=== PATIENT | male | born 1990 | race Asian ===

== ENCOUNTER 2019-02-01 21:25 | Emergency (ER) | payer BC ==
[2019-02-01] MEDS ORDERED: SODIUM CHLORIDE 0.9% 1,000 ML IV STA (21:42)
[2019-02-01 22:04] VITALS: RESP 18
[2019-02-01] MEDS ORDERED: MAG HYDROX/AL HYDROX/SIMETH 30 ML, HYOSCYAMINE ELIXIR 10 ML, CIMETIDINE HCL 300 MG, LID... PO STA ×4 (22:08)
[2019-02-01] MEDS ORDERED: FAMOTIDINE 20 MG/2 ML VIAL IV STA (22:10)
--- NOTE | 2019-02-01 22:36 | CT ---
EXAM: CT Abdomen and Pelvis With Intravenous Contrast CLINICAL HISTORY: ITS.REASON CT Reason: pain TECHNIQUE: Axial computed tomography images of the abdomen and pelvis with intravenous contrast. CTDI is 9.1 mGy and DLP is 901.7 mGy-cm. This CT exam was performed using one or more of the following dose reduction techniques: automated exposure control, adjustment of the mA and/or kV according to patient size, and/or use of iterative reconstruction technique. COMPARISON: No relevant prior studies available. FINDINGS: Lung bases: Unremarkable. No mass. No consolidation. ABDOMEN: Liver: Unremarkable. No mass. Gallbladder and bile ducts: Unremarkable. No calcified stones. No ductal dilation. Pancreas: Unremarkable. No mass. No ductal dilation. Spleen: Unremarkable. No splenomegaly. Adrenals: Unremarkable. No mass. Kidneys and ureters: Unremarkable. No solid mass. No hydronephrosis. Stomach and bowel: Diffuse colonic wall thickening consistent with pancolitis. PELVIS: Appendix: Unremarkable as visualized. Bladder: Unremarkable. No mass. Reproductive: Unremarkable as visualized. ABDOMEN and PELVIS: Intraperitoneal space: Unremarkable. No free air. No significant fluid collection. Bones/joints: No acute fracture. No dislocation. Soft tissues: Unremarkable. Vasculature: Unremarkable. No abdominal aortic aneurysm. Lymph nodes: Unremarkable. No enlarged lymph nodes. IMPRESSION: Pancolitis. No perforation.
[2019-02-01 22:51] LABS: Basophils # (A) 0.1 k/uL (0-0.2); Basophils % (A) 1 %; Eosinophils # (A) 0.4 k/uL (0-0.7); Eosinophils % (A) 5 %; HCT 41.5 % (39.0-53.0); Lymphocytes % (A) 27 %; MCH 29.9 pg (25.0-35.0); MCHC 36.1 g/dL (31.0-37.0); MCV 82.8 fL (80.0-100.0); Mean Platelet Volume 7.5; Monocytes # (A) 0.8 k/uL (0-1.0); Monocytes % (A) 11 %; Neutrophils # (A) 3.8 k/uL (1.3-7.7); Neutrophils % (A) 51 %; Platelet Count 225 k/uL (150-450); RBC 5.02 m/uL (4.30-5.90); RDW 14.6 % (11.5-15.5); WBC 7.4 k/uL (3.8-10.6)
[2019-02-01 23:00] LABS: ALT 30 U/L (21-72); AST 29 U/L (17-59); African American GFR (CKD) >90 (>60 ml/min/1.73 sqM); Albumin 4.4 g/dL (3.5-5.0); Alkaline Phosphatase 102 U/L (38-126); Anion Gap 12 mmol/L; Blood Urea Nitrogen 19 mg/dL (9-20); Calcium 9.4 mg/dL (8.4-10.2); Carbon Dioxide 22 mmol/L (22-30); Chloride 107 mmol/L (98-107); Glucose 103 mg/dL (74-99); Sodium 141 mmol/L (137-145); Total Bilirubin 0.8 mg/dL (0.2-1.3); Total Protein 7.5 g/dL (6.3-8.2)
[2019-02-01 23:30] VITALS: BP 110/69; PULSE 68; TEMP 98
--- NOTE | 2019-02-01 23:44 | ED ---
General Adult HPI - General Chief complaint: GI Bleed Stated complaint: Abd pain/Hematuria Time Seen by Provider: 02/01/19 21:40 Source: patient Mode of arrival: ambulatory Limitations: no limitations - History of Present Illness Initial comments: 29-year-old male presenting for left upper quadrant abdominal pain and bloody stools. Patient states she has history of peptic ulcer disease he states he has a had upper endoscopy was diagnosed clinically. Patient states that he has had pain for the past 2 days of the LUQ, he states the pain is sharp coming and going denies radiation denies a specific alleviating or aggravating factors. He denies it being brought on by food. He states that today he had blood on the toilet paper today when wiping after normal bowel movement. Denies having a large amount. Patient states he has not had melena. Patient denies nausea vomiting diarrhea he denies any constipation. Patient denies history of hemorrhoids. He denies a fever chills night sweats. Remaining review of systems negative upon arrival patient appears well signs of acute distress. - Related Data Previous Rx's Medication Instructions Recorded Famotidine [Pepcid] 20 mg PO DAILY 21 Days #21 tablet 02/01/19 Allergies Allergy/AdvReac Type Severity Reaction Status Date / Time No Known Allergies Allergy Verified 02/01/19 23:17 Review of Systems ROS Statement: Those systems with pertinent positive or pertinent negative responses have been documented in the HPI. ROS Other: All systems not noted in ROS Statement are negative. Past Medical History Past Medical History: No Reported History History of Any Multi-Drug Resistant Organisms: None Reported Past Surgical History: No Surgical Hx Reported Past Psychological History: No Psychological Hx Reported Smoking Status: Never smoker Past Alcohol Use History: Occasional Past Drug Use History: None Reported General Exam - General Exam Comments Initial Comments: General: The patient is awake and alert, in no distress, and does not appear acutely ill. Eye: Pupils are equal, round and reactive to light, extra-ocular movements are intact. No nystagmus. There is normal conjunctiva bilaterally. No signs of icterus. Ears, nose, mouth and throat: There are moist mucous membranes and no oral lesions. Neck: The neck is supple, there is no tenderness or JVD. Cardiovascular: There is a regular rate and rhythm. No murmur, rub or gallop is appreciated. Respiratory: Lungs are clear to auscultation, respirations are non-labored, breath sounds are equal. No wheezes, stridor, rales, or rhonchi. Gastrointestinal: Soft, non-distended, abdomen is mildly tender to the left upper quadrant and left midabdomen without masses or organomegaly noted. There is no rebound or guarding present. No CVA tenderness. Bowel sounds are unremarkable. Musculoskeletal: Normal ROM, no tenderness. Strength 5/5. Sensation intact. Pulses equal bilaterally 2+. Neurological: A&O x 3. CN II-XII intact, There are no obvious motor or sensory deficits. Coordination appears grossly intact. Speech is normal. Skin: Skin is warm and dry and no rashes or lesions are noted. Psychiatric: Cooperative, appropriate mood & affect, normal judgment. Limitations: no limitations Course Vital Signs 02/01/19 02/01/19 02/01/19 21:30 22:03 23:30 Temperature 98.8 F 98 F Pulse Rate 82 73 68 Respiratory 20 18 18 Rate Blood Pressure 135/93 132/76 110/69 O2 Sat by Pulse 99 97 98 Oximetry Medical Decision Making - Medical Decision Making Very well-appearing 29-year-old male. Possible history of peptic ulcer disease. Patient states this was 2 years prior to he received Pepcid. Patient pain is mostly left upper abdomen. CT revealed pancolitis. I recommended patient follow-up with GI received colonoscopy ddx included chrons. Patient states he had relief with GI cocktail and Pepcid. Patient's laboratory studies unremarkable. Hemoglobin stable. Heart rate within normal limits. Blood pressure stable. Patient provided prescription outpatient for Pepcid. Return parameters were discussed at length as well as the importance of follow-up. Patient is agreeable care plan as well as discharge. Patient was discharged appearing well. - Lab Data Result diagrams: 02/01/19 22:10 02/01/19 22:10 Lab Results 02/01/19 02/01/19 02/01/19 Range/Units 22:10 22:10 22:10 WBC 7.4 (3.8-10.6) k/uL RBC 5.02 (4.30-5.90) m/uL Hgb 15.0 (13.0-17.5) gm/dL Hct 41.5 (39.0-53.0) % MCV 82.8 (80.0-100.0) fL MCH 29.9 (25.0-35.0) pg MCHC 36.1 (31.0-37.0) g/dL RDW 14.6 (11.5-15.5) % Plt Count 225 (150-450) k/uL Neutrophils % 51 % Lymphocytes % 27 % Monocytes % 11 % Eosinophils % 5 % Basophils % 1 % Neutrophils # 3.8 (1.3-7.7) k/uL Lymphocytes # 2.0 (1.0-4.8) k/uL Monocytes # 0.8 (0-1.0) k/uL Eosinophils # 0.4 (0-0.7) k/uL Basophils # 0.1 (0-0.2) k/uL APTT 29.4 (22.0-30.0) sec Sodium 141 (137-145) mmol/L Potassium 4.0 (3.5-5.1) mmol/L Chloride 107 (98-107) mmol/L Carbon Dioxide 22 (22-30) mmol/L Anion Gap 12 mmol/L BUN 19 (9-20) mg/dL Creatinine 0.96 (0.66-1.25) mg/dL Est GFR (CKD-EPI)AfAm >90 (>60 ml/min/1.73 sqM) Est GFR (CKD-EPI)NonAf >90 (>60 ml/min/1.73 sqM) Glucose 103 H (74-99) mg/dL Calcium 9.4 (8.4-10.2) mg/dL Total Bilirubin 0.8 (0.2-1.3) mg/dL AST 29 (17-59) U/L ALT 30 (21-72) U/L Alkaline Phosphatase 102 (38-126) U/L Total Protein 7.5 (6.3-8.2) g/dL Albumin 4.4 (3.5-5.0) g/dL Disposition Clinical Impression: Abdominal pain, Pancolitis Disposition: HOME SELF-CARE Condition: Good Instructions (If sedation given, give patient instructions): Peptic Ulcer (ED), Abdominal Pain (ED) Additional Instructions: Please use medication as discussed. Please follow-up with family doctor in the next 2 days, please follow-up with GI as discussed I recommend colonoscopy and upper endoscopy. Please return to emergency room if the symptoms increase or worsen or for any other concerns. Prescriptions: Famotidine [Pepcid] 20 mg PO DAILY 21 Days #21 tablet Is patient prescribed a controlled substance at d/c from ED?: No Referrals: Nonstaff,Physician [Primary Care Provider] - 1-2 days Cali Monahan MD [STAFF PHYSICIAN] - 1-2 days Time of Disposition: 23:44
== END 2019-02-01 23:57 | disposition home or self-care (01) ==
LOC: EC 21:25
DX: K51.00 Ulcerative (chronic) pancolitis without complications (principal); Z87.11 Personal history of peptic ulcer disease
CPT/HCPCS: 36415; 80053; 85025; 85730; 74177; 99285; 96374; 96361; Q9967

== ENCOUNTER 2019-12-09 22:45 | Emergency (ER) | payer BC ==
[2019-12-09 23:02] VITALS: RESP 18
[2019-12-09] MEDS ORDERED: HYDROcodone/APAP 5-325MG 1 EACH TAB PO STA (23:19)
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
--- NOTE | 2019-12-09 23:32 | XR ---
EXAMINATION TYPE: PA chest and left rib series, 5 views DATE OF EXAM: 12/09/2019 Comparison: None Clinical History: 29-year-old male left lower rib pain Findings: The cardiomediastinal silhouette, aorta, and pulmonary vasculature are within normal limits. Lungs and pleural spaces are clear. No displaced left rib fracture. Impression: No acute cardiopulmonary process. No displaced left rib fracture seen.
[2019-12-10] MEDS ORDERED: ACET/COD 300 MG/30 MG STARTER PACK 6 TAB BTL PO STA (00:26)
[2019-12-10 00:39] VITALS: BP 121/75; PULSE 69; TEMP 98
== END 2019-12-10 00:50 | disposition home or self-care (01) ==
LOC: EC 22:45
DX: S20.212A Contusion of left front wall of thorax, initial encounter (principal); X50.0XXA Overexertion from strenuous movement or load, initial encounter; Y93.89 Activity, other specified
CPT/HCPCS: 99284